=== PATIENT | female | born 1975 | race Caucasian/White ===

== ENCOUNTER 2021-11-10 08:24 | Outpatient (CLI) | payer OTHER, SELFPAY ==
[2021-11-10 10:01] LABS: SARS-CoV-2 RNA PCR Positive (Negative)
== END 2021-11-10 08:25 | disposition home or self-care (01) ==
LOC: CHSLAB 08:27
PROVIDERS: PCP Registered Nurse; Visit Provider Registered Nurse
DX: U07.1 COVID-19 (principal)
CPT/HCPCS: C9803; U0003; U0005